=== PATIENT | male | born 1985 | race Hispanic/Latino ===

== ENCOUNTER 2024-08-02 12:34 | Emergency (ER) | payer BC ==
[~2024-08-02] VITALS: Ht 170.2 cm; Wt 104.3 kg
--- NOTE | 2024-08-02 12:56 | ERN ---
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 He thinks he is up-to-date on his tetanus shot but I will. Timing/Duration: 1-3 hours Allergies: Coded Allergies: No Known Drug Allergies (Unverified Allergy, Unknown, 08/02/24) Past Medical History Past Medical History: No Pertinent History Past Surgical History: Other Surgical History Other: LEFT KNEE REPLACEMENT ROS Dictation Review of systems negative. Physical Exam Head/Face Trauma: No Eye: bilateral eye normal inspection, bilateral eye PERRL, bilateral eye EOMI Extremities Comment Patient's left index finger has a small incision near the medial MCP joint with a small bit of the splinter visible in the base of the wound. Patient states that the splinter actually extends down into the palm area of the MCP joint. Patient can move the hand easily there were no distal sensation deficits and no strength deficits. MDM I ordered a laceration tray and lidocaine and tetanus shot. I will get an x-ray of the hand to better characterize the size of the splinter and how best to remove it. Plain films show no splinter, unfortunately. I will proceed with removing it anyway. Please see the procedure note below. Splinter was removed wound closed patient discharged no antibiotics necessary. ED Course Orders Procedure Category Date Status Time Lidocaine Hcl 1% 20ml PHA 08/02/24 Complete Vial (Lidocaine Hc 13:00 Laceration Tray Set CPOE 08/02/24 Transmitted Up (Er) 12:51 Tetanus,Diphtheria PHA 08/02/24 Complete Tox [Adult] (Diphther 13:00 Finger(S) 2+Vws Lt RAD 08/02/24 Resulted 12:56 Current Medications Medications (Trade) Dose Ordered Sig/[place] Route PRN Reason Start Time Stop Time Status Last Admin Dose Admin Lidocaine HCl (Lidocaine HCl 1% 20ml Vial) 20 ml ONCE ONCE INJ 08/02/24 13:00 08/02/24 13:01 DC 08/02/24 13:11 Tetanus/ Diphtheria Toxoids Adsorbed (DiphthERIA-teTANUS TOXOID [ADULT]/ DECAVAC) 0.5 ml ONCE ONCE IM 08/02/24 13:00 08/02/24 13:01 DC 08/02/24 13:13 Vital Signs Date Time Temp Pulse Resp B/P (MAP) Pulse Ox O2 Delivery O2 Flow Rate FiO2 08/02/24 14:41 98.1 70 16 136/90 98 Room Air* 0 21 08/02/24 13:35 98.1 72 16 140/95 98 Room Air* 0 21 08/02/24 12:40 97.7 74 18 140/91 97 Room Air Procedure Dictation I made an incision at the base of the patient's left index finger radial side just through the skin to the subcutaneous tissues below. Wound was cleaned with wound irrigation solution. Then with an extensive milking action I was able to get the splinter up out into the wound and remove it with a tweezer. Bleeding stopped with portable cautery. Three four 0 nylon sutures placed to loosely approximate the incision. Laceration/Wound Repair Laceration/Wound Repair : Wound Location: upper extremity Wound Length (cm): 2 Wound Explored: foreign body removed Irrigated w/ Saline (ccs): 10 Anesthesia: 1% Lidocaine Wound Debrided: minimal Wound Repaired With: sutures Suture Size/Type: 4:0 Number of Sutures: 3 Sterile Dressing Applied?: Yes DX & DISP Disposition: Discharge Departure Impression: Primary Impression: Laceration of finger of left hand Condition: Stable Additional Instructions: You can remove the sutures after a week. Please return if there are any signs or symptoms of infection such as redness swelling purulent discharge. Referrals: SELF,REFERRAL (PCP) EDMAR LONG MD August 02, 2024 12:56
[2024-08-02] MEDS: LIDOCAINE HCL 1% 20 ML VIAL INJ ONE (13:11)
[2024-08-02] MEDS: teTANUS/diphthERIA TOXOID [ADULT] 0.5 ML VIAL IM ONE (13:13)
--- NOTE | 2024-08-02 13:30 | NUR ---
LACERATION TRAY SET UP IN [place] COMPLETED
--- NOTE | 2024-08-02 14:27 | HMCIMG ---
LEFT index FINGER RADIOGRAPHS - 2 VIEWS INDICATION: Index finger splinter COMPARISON: None FINDINGS: AP, lateral views. No fracture or subluxation identified. No intrinsic osseous abnormality detected. No radiopaque foreign body noted. IMPRESSION: No evidence for foreign body.
[2024-08-02 14:41] VITALS: BP 136/90; PULSE 70; RESP 16; TEMP 98.1; O2SAT 98
== END 2024-08-02 14:47 | disposition home or self-care (01) ==
LOC: EDH 12:34 → EEVIPCON 12:34 → EDH 14:47
DX: S61.211A Laceration without foreign body of left index finger without damage to nail, initial encounter (principal); Z96.652 Presence of left artificial knee joint; W22.8XXA Striking against or struck by other objects, initial encounter; Y93.89 Activity, other specified; Y92.89 Other specified places as the place of occurrence of the external cause; Y99.8 Other external cause status
CPT/HCPCS: 10120; 12001; 73140; 90471; 90714; 99284; 99285